=== PATIENT | male | born 1975 | race African-American/Black ===

== ENCOUNTER 2022-01-23 08:16 | Emergency (ER) | payer BC ==
--- OUTSIDE RECORDS SUMMARY | 2022-01-23 08:28 | XMS REPORT | Continuity of Care Document ---
:[address] [facility] t Address [address] [place] [address] Care Team Providers Name Role Phone Lab, Fam Pob I Attending Clinician Unavailable Tyson ANIMAL HANDLER Attending Clinician TYSON Attending Clinician Unavailable Payers Payer Name Policy Type Policy Number Effective Date Expiration Date S ource Problems This patient has no known problems. Allergies, Adverse Reactions, Alerts Allergy Allergy Status Severity Reaction(s) Onset Inactive Treating Comm ents Source Name Type Date Date Clinician NO KNOWN Drug Active [facility] Social History Social Habit Start Date Stop Date Quantity Comments Source Exposure to Yes [facility] SARS-CoV-2 (event) Medica l [place] Sex Assigned At [birth year] [facility] 00:00:00 00:00:00 [facility] Smoking Status Start Date Stop Date Source Unknown if ever smoked [facility] Medications This patient has no known medications. Procedures This patient has no known procedures. Encounters Start End Encounter Admission Attending Care Care Encounter Source Date/Time Date/Time Type Type Clinicians Facility Department ID 2021-02-03 2021-02-03 Laboratory Lab, [facility] Fam Pob I [facility] 1.2. [id number] Univers 08:49:04 09:09:04 Only Shayla Blake [employer] [place] [id number] [facility] [id number] Pasquale as Professio [phone] [facility] [address] 2021-02-03 2021-02-03 Outpatient R TYSON [facility] [id number] Univers 09:00:00 09:00:00 [facility] Results This patient has no known results.
[2022-01-23] MEDS ORDERED: TETRACAINE HCL 0.5% 4ML OPTH ONE (08:57)
[2022-01-23] MEDS ORDERED: FLUORESCEIN SODIUM 1 MG/WRAP ONE (08:57)
[2022-01-23] MEDS ORDERED: acetaZOLAMIDE 250 MG TAB ONE (09:56)
--- NOTE | 2022-01-23 10:02 | EDPHYS ---
Physician Documentation [facility] Name: Charlie Rivers Age: 46 yrs Sex: Male : 1975 Arrival Date: 01/23/2022 Time: 08:20 Bed 12 Private MD: ED Physician Laurent Kim HPI: 01/23 09:10 This 46 yrs old Black Male presents to ER via Ambulatory with complaints of Eye Pain, jmm Eye Swelling, Redness of Eye, Drainage From Eye. 09:10 Onset: The symptoms/episode began/occurred acutely, 2 day(s) ago. This is a 46-year-old jmm male with no known chronic conditions presents emerged part with complaints of acute onset left eye pain beginning approximately 2 days ago. Patient states while exiting his workplace developed acute pain secondary to the light outside. Patient states pain had subsided yesterday but this morning he awoke with more pain to the left eye along with drainage. Denies vision change. Patient states that he had occasional blurred vision to his left eye but is now resolved. Denies fever, cough, congestion.. Historical: - Allergies: 08:39 No Known Allergies; jd3 - Home Meds: 08:39 None [Active]; jd3 - PMHx: 08:39 None; jd3 - PSHx: 08:39 None; jd3 - Immunization history:: Adult Immunizations up to date, Client reports receiving the 2nd dose of the Covid vaccine, Flu vaccine is up to date. - Social history:: Smoking status: Patient reports the use of cigarette tobacco products, denies chronic smoking, but will smoke occasionally. ROS: 09:10 Constitutional: Negative for fever, chills, and weight loss. jmm 09:10 Eyes: Positive for pain. 09:10 All other systems are negative. Exam: 09:10 Constitutional: This is a well developed, well nourished patient who is awake, alert, jmm and in no acute distress. Head/Face: atraumatic. 09:10 Neck: Trachea midline, Supple Chest/axilla: Normal chest wall appearance and motion. Cardiovascular: Regular rate and rhythm. No edema appreciated Respiratory: Normal respirations, no respiratory distress appreciated Abdomen/GI: Non distended, soft Back: Normal ROM Skin: General appearance color normal MS/ Extremity: Moves all extremities, no obvious deformities appreciated, no edema noted to the lower extremities Neuro: Awake and alert Psych: Behavior is normal, Mood is normal, Patient is cooperative and pleasant 09:10 Eyes: Extraocular movements: intact throughout, Conjunctiva: injected, in the left eye, Corneas: abrasion, is not appreciated, foreign body, is not appreciated, a fluorescein strip employed to appreciate the findings, Anterior chamber: Intraocular pressure: left eye = 32mmHg. Vital Signs: 08:40 BP 158 / 86; Pulse 67; Resp 17 S; Temp 98.0(TE); Pulse Ox 99% on R/A; Weight 102.06 kg jd3 (R); Height 5 ft. 11 in. (180.34 cm) (R); Pain 8/10; 10:18 BP 137 / 97; Pulse 83; Resp 18; Temp 98.6; Pulse Ox 99% on R/A; ke1 08:40 Body Mass Index 31.38 (102.06 kg, 180.34 cm) jd3 Visual Acuity: 10:02 Left Eye Visual acuity 20/20, Normal, React To Light; Right Eye Visual acuity 20/20, ke1 Normal, React To Light; Both Eyes Visual acuity 20/20; Without Lenses; MDM: 09:12 Patient medically screened. [facility] 09:34 ED course: Asked by Timi to evaluate patient after difficulty obtaining pressures with rn tonopen. I performed pressure measurement using tonopen after tetracaine applied, 3 pressures obtained, 32/42/46. Pt reports 2 days of left eye pain without trauma or injury. Dr. rollins unavailable to help, is out of town, will initiate transfer for acute glaucoma. . 09:52 Data reviewed: vital signs, nurses notes. Counseling: I had a detailed discussion with nikolay the patient and/or guardian regarding: the historical points, exam findings, and any diagnostic results supporting the discharge/admit diagnosis, the need to transfer to another facility. ED course: I discussed the patient with Dr. overton whom accepted the patient to [facility] for further evaluation. Advised not administer timolol or diamox. . 01/23 09:37 Order name: SARS-COV-2 RT PCR (Document "Date of Onset" if Symptomatic) eb 01/23 09:20 Order name: Visual Acuity; Complete Time: 10:14 nikolay Administered Medications: 09:11 Drug: Tetracaine Drops 0.5 % 1 drops {Note: BY Yeni HDEZ} Route: Ophthalmic; Site: ke1 left eye; 09:11 Drug: Fluorescein Strip 1 strip {Note: by Yeni HDEZ} Route: Ophthalmic; Site: left ke1 eye; 10:01 Not Given (Physician Discretion): timoloL Drops 0.5 % 1 application Ophthalmic Per ke1 protocol 10:01 Not Given (Physician Discretion): Diamox Sequels (acetaZOLAMIDE) Extended Release ke1 Capsule 500 mg PO once Disposition: 11:40 Co-signature as Attending Physician, Laurent Kim MD I agree with the assessment and rn plan of care. PA/CONCRETE PAVING SUPERVISOR's history reviewed, patient interviewed, and examined. HPI: 46 year old male with left eye pain for 2 days, no trauma or injury. My personal exam of patient reveals: + left scleral injection, IOP 42/46 with tonopen, reactive I agree with assessment and care plan and confirm the diagnosis (es) above. Disposition Summary: 01/23/22 10:01 Transfer Ordered Transfer Location: [facility] jm Reason: Higher level of care jmm Condition: Stable jmm Problem: new jmm Symptoms: are unchanged jmm Accepting Physician: Dr. Loza(01/23/22 10:38) ke1 Diagnosis - Acute Glaucoma jmm Forms: - Medication Reconciliation Form jmm - SBAR form jmm Signatures: Dispatcher [employer] EDTimi Negron PA PA jmm Nieto, Roman, MD MD rn Davies, Jonathon, RN RN jd3 Ebrottie, Kouassi, RN RN ke1 Corrections: (The following items were deleted from the chart) 10:38 10:01 Dr. Dgao link ke1
--- NOTE | 2022-01-23 10:02 | ER ---
Nurse's Notes [facility] Name: Charlie Rivers Age: 46 yrs Sex: Male : 1975 Arrival Date: 01/23/2022 Time: 08:20 Bed 12 Private MD: Diagnosis: Acute Glaucoma Presentation: 01/23 08:36 Chief complaint: Patient states: "mt left eye has been giving me problems for about 2 jd3 days now. I noticed it is red and tearing. I saw that there might be puss so it might be getting infected and decided I need it checked out.". Coronavirus screen: At this time, the client does not indicate any symptoms associated with coronavirus-19. Ebola Screen: No symptoms or risks identified at this time. The patient denies any loss of vision. Initial Sepsis Screen: Does the patient meet any 2 criteria? No. Patient's initial sepsis screen is negative. Does the patient have a suspected source of infection? Yes: Skin breakdown/wound. Risk Assessment: Do you want to hurt yourself or someone else? Patient reports no desire to harm self or others. Onset of symptoms was January 21, 2022. 08:36 Method Of Arrival: Ambulatory jd3 08:36 Acuity: JOSÉ 3 jd3 Historical: - Allergies: 08:39 No Known Allergies; jd3 - Home Meds: 08:39 None [Active]; jd3 - PMHx: 08:39 None; jd3 - PSHx: 08:39 None; jd3 - Immunization history:: Adult Immunizations up to date, Client reports receiving the 2nd dose of the Covid vaccine, Flu vaccine is up to date. - Social history:: Smoking status: Patient reports the use of cigarette tobacco products, denies chronic smoking, but will smoke occasionally. Screenin:18 Abuse screen: Denies threats or abuse. Nutritional screening: No deficits noted. ke1 Tuberculosis screening: No symptoms or risk factors identified. Fall Risk No fall in past 12 months (0 pts). No secondary diagnosis (0 pts). No IV (0 pts). Ambulatory Aid- None/Bed Rest/Nurse Assist (0 pts). Gait- Normal/Bed Rest/Wheelchair (0 pts) Mental Status- Oriented to own ability (0 pts). Total Hutchins Fall Scale indicates No Risk (0-24 pts). Assessment: 08:50 Pain: Complains of pain in left eye Pain does not radiate. Pain currently is 8 out of ke1 10 on a pain scale. 08:56 EENT: Sclera/Cornea are reddened in outer aspect of conjuctiva of left eye, iris of ke1 left eye and inner aspect of conjunctiva of left eye. 08:58 General: Appears uncomfortable, Behavior is cooperative. Neuro: Level of Consciousness ke1 is awake, alert, Oriented to person, place, time, situation. Cardiovascular: Heart tones S1 S2 Capillary refill < 3 seconds Patient's skin is warm and dry. Pulses are all present. Respiratory: Airway is patent Breath sounds are clear bilaterally. GI: No deficits noted. : No deficits noted. Derm: No deficits noted. Musculoskeletal: No deficits noted. 10:18 Reassessment: REPORT CALLED AND GIVEN TO RUSSELL GOODMAN. ke1 Vital Signs: 08:40 BP 158 / 86; Pulse 67; Resp 17 S; Temp 98.0(TE); Pulse Ox 99% on R/A; Weight 102.06 kg jd3 (R); Height 5 ft. 11 in. (180.34 cm) (R); Pain 8/10; 10:18 BP 137 / 97; Pulse 83; Resp 18; Temp 98.6; Pulse Ox 99% on R/A; ke1 08:40 Body Mass Index 31.38 (102.06 kg, 180.34 cm) jd3 Visual Acuity: 10:02 Left Eye Visual acuity 20/20, Normal, React To Light; Right Eye Visual acuity 20/20, ke1 Normal, React To Light; Both Eyes Visual acuity 20/20; Without Lenses; ED Course: 08:20 Patient arrived in ED. jj6 08:39 Triage completed. jd3 08:41 Arm band placed on. jd3 08:42 Timi Jaime PA is PHCP. jmm 08:42 Laurent Kim MD is Attending Physician. jmm 08:44 Armida Lara, MAXINE is Primary Nurse. ke1 09:18 Bed in low position. Call light in reach. ke1 09:37 initiated a transfer with Juanito from the [facility]. eb 09:[address] Bell the polisher eyeglass frames citizen participation specialist for [facility] with Timi Mccoy for patient transfer consultation. 09:[address] Loza the emergency room doctor for [facility] with Timi Mccoy for patient transfer consultation. 10:00 administrative approval given by Juanito Russ / patient has been accepted to [facility] ER/ Dr. Yelena Loza has accepted the patient in transfer/ report to be called to [phone]. 10:32 Assist provider with eye exam of left eye. ke1 10:37 Patient did not have IV access during this emergency room visit. ke1 Administered Medications: 09:11 Drug: Tetracaine Drops 0.5 % 1 drops {Note: BY Yeni HDEZ} Route: Ophthalmic; Site: [facility] left eye; 09:11 Drug: Fluorescein Strip 1 strip {Note: by Yeni HDEZ} Route: Ophthalmic; Site: left [facility] eye; 10:01 Not Given (Physician Discretion): timoloL Drops 0.5 % 1 application Ophthalmic Per [facility] protocol 10:01 Not Given (Physician Discretion): Diamox Sequels (acetaZOLAMIDE) Extended Release ke1 Capsule 500 mg PO once Outcome: 10:01 ER care complete, transfer ordered by . nikolay 10:37 Transferred by ground EMS to [facility], Transfer form completed. ke1 10:37 Condition: stable 10:37 Discharge instructions given to EMS. 10:38 Patient left the ED. ke1 Signatures: Timi Jaime PA PA jmm Davies, Jonathon, RN RN jd3 Botello, Elizabeth eb Jeffries, Jennifer jj6 Armida Lara RN RN ke1 Corrections: (The following items were deleted from the chart) 09:00 08:56 EENT: Sclera/Cornea are reddened in outer aspect of conjuctiva of left eye, iris ke1 of left eye and inner aspect of conjunctiva of left eye ke1 09:12 09:11 Fluorescein Strip 1 strip Ophthalmic in left eye ke1 ke1 10:12 10:11 administrative approval given by Juanito Russ / patient has been accepted to [facility] ER/ Dr. Yelena Loza has accepted the patient in transfer/ report to be called to [phone] 10: 10:02 Right Eye Without Lenses, 20/20, React To Light, Left Eye Without Lenses, 20/, ke1 React To Light, Both Eyes Without Lenses, 20 ke1
[2022-01-23 10:43] VITALS: O2SAT 99
[2022-01-23 10:44] VITALS: BP 137/97; TEMP 98.6
== END 2022-01-23 10:38 | disposition short-term general hospital (02) ==
LOC: ER 08:16
DX: H40.9 Unspecified glaucoma (principal); F17.210 Nicotine dependence, cigarettes, uncomplicated; Z20.822 Contact with and (suspected) exposure to COVID-19
CPT/HCPCS: 99285; U0003

== ENCOUNTER 2022-10-11 00:12 | Emergency (ER) | payer BC ==
--- OUTSIDE RECORDS SUMMARY | 2022-10-11 00:15 | XMS REPORT | Continuity of Care Document ---
:1975 Author Organization [facility] t Address [address] [place] [address] Care Team Providers Name Role Phone SELENE CLEANING Attending Clinician Unavailable HEIKE LOZA Attending Clinician Unavailable Heike Loza MD Attending Clinician Lab, Adc Fam Pob I Attending Clinician Unavailable Shayla Mckenna Attending Clinician SHAYLA MEHTA Attending Clinician Unavailable Payers Payer Name Policy Type Policy Number Effective Date Expiration Date S ource PPO/EPO - BCBS [id number] 2022 00:00:00 Problems This patient has no known problems. Allergies, Adverse Reactions, Alerts Allergy Allergy Status Severity Reaction(s) Onset Inactive Treating Comm ents Source Name Type Date Date Clinician NO KNOWN Drug Active [facility]OWN Allergy Active [facility] Social History Social Habit Start Date Stop Date Quantity Comments Source Exposure to Yes [facility] SARS-CoV-2 (event) Medica l Branch Sex Assigned At [birth year] [facility] Medical 00:00:00 00:00:00 Center Smoking Status Start Date Stop Date Source Unknown if ever smoked [facility] acute hospital Medications Ordered Filled Start Stop Current Ordering Indication Dosage Frequency Signature Comments Components Source Medication Medication Date Date Medication? Clinician (SIG) Name Name prednisoLON Yes 1[drp] Q.25D Place [address] [facility] [address] [facility] acetate 3-05 drop [facility] (PRED 00:00: the left Medical FORTE) 1 % 00 eye 4 Center ophthalmic (four) suspension times daily. atropine Yes 1[drp] Q.5D Place 1 [facility] (ISOPTO) 1 3-05 drop into Luke s % 00:00: the left Medical ophthalmic 00 eye 2 Center solution (two) times daily. Vital Signs Vital Name Observation Time Observation Value Comments Source Oxygen saturation in 2022-01-23 13:49:00 100 /min [facility]xim[facility] Systolic blood 2022-01-23 13:49:00 171 mm[Hg] [facility] Diastolic blood 2022-01-23 13:49:00 98 mm[Hg] [facility] S [facility] Heart rate 2022-01-23 13:49:00 68 /min [facility] Respiratory rate 2022-01-23 13:49:00 18 /min [facility] Body temperature 2022-01-23 11:54:00 36.72 Shelbi [facility] Procedures This patient has no known procedures. Plan of Care Planned Activity Planned Date Details Comments Source Future Scheduled 2022-07-22 INFLUENZA VACCINE (#1) [facility] 00:00:00 [code = INFLUENZA Medical Ce nter VACCINE (#1)] Future Scheduled 2021-11-[address] [facility] 00:00:00 (12+) [code = Medical Center DEPRESSION SCREENING (12+)] Future Scheduled 2011 Lipid panel (procedure) [facility] 00:00:00 [code = 49522755] Medical nter Future Scheduled 1995 DTAP/TDAP/TD VACCINES [facility] 00:00:00 (1 - Tdap) [code = Medical C enter DTAP/TDAP/TD VACCINES (1 - Tdap)] Future Scheduled 1994 HEPATITIS C SCREENING [facility] 00:00:00 [code = HEPATITIS C Medical Center SCREENING] Future Scheduled [address] [facility] 00:00:00 Counseling and Medical Cente r Screening (12+) [code = Tobacco Cessation Counseling and Screening (12+)] Future Scheduled 1977-04-18 COVID-19 VACCINE (#1) [facility] 00:00:00 [code = COVID-[address] VACCINE (#1)] Future Scheduled 1976 CT Colonography (combo) [facility] 00:00:00 [code = CT Colonography [facility] (combo)] Future Scheduled 1976 Screening for malignant [facility] 00:00:00 neoplasm of colon Medical Ce nter (procedure) [code = 695739086] Future Scheduled 1976 Screening for malignant [facility] 00:00:00 neoplasm of colon Medical Ce nter (procedure) [code = 021861646] Future Scheduled 1975 Screening for malignant [facility] 00:00:00 neoplasm of colon Medical Ce nter (procedure) [code = 430717319] Future Scheduled 1976 Screening for malignant [facility] 00:00:00 neoplasm of colon Medical Ce nter (procedure) [code = 572478974] Future Scheduled 1975 Sigmoidoscopy [code = [facility] 00:00:00 Sigmoidoscopy] Medical Cente r Encounters Start End Encounter Admission Attending Care Care Encounter Source Date/Time Date/Time Type Type Clinicians Facility Department ID 2022-01-26 2022-01-26 Outpatient SELENE CLEANING [facility] [id number] 12:54:46 14:22:34 Tyesha Medicin e 2022-01-23 2022-01-23 Emergency ER [facility] Emergency [id number] [facility] 11:38:00 17:56:00 HEIKE 2022-01-23 2022-01-23 [id number] 11:38:00 17:56:00 [facility] 2021-02-03 2021-02-03 Laboratory Lab, Adc Fam Pob I [place] 1.2. [id number] [facility] 08:49:04 09:09:04 Only Tyson [employer] [id number] [facility] [place] [id number] Pasquale as Professio [phone] Ut dical nal [address] Branch Office [facility] 2021-02-03 2021-02-03 Outpatient R TYSON, [facility] [id number] Univers 09:00:00 09:00:[address] [facility] Results This patient has no known results.
[2022-10-11] MEDS ORDERED: ASPIRIN 81 MG CHEWABLE TABLET ONE (01:00)
[2022-10-11] MEDS ORDERED: MORPHINE 4 MG/ML SYR ONE (01:45)
[2022-10-11 01:49] LABS: SARS-COV-2 RT PCR NEGATIVE (NEGATIVE)
[2022-10-11 02:06] LABS: Absolute Lymphocytes (CBC) 1.4 K/uL (0.7-4.9); Lymphocytes % 19.4 % (15.3-44.8); MCV 86.2 fL (80-100); MPV 8.9 fL (7.6-11.3); RBC Red Blood Cell Count 5.68 M/uL (4.33-5.43)
[2022-10-11 02:29] LABS: Albumin 3.8 g/dL (3.4-5.0); Bilirubin Total 0.3 mg/dL (0.2-1.0); Magnesium 1.9 mg/dL (1.8-2.4); Protein, Total 7.6 g/dL (6.4-8.2)
--- NOTE | 2022-10-11 03:06 | EDPHYS ---
Physician Documentation [facility] Name: Charlie Rivers Age: 46 yrs Sex: Male : 1975 Arrival Date: 10/11/2022 Time: 00:15 Bed 5 Private MD: ED Physician Vilma Rios HPI: 10/11 03:00 This 46 yrs old Black Male presents to ER via Ambulatory with complaints of High Blood sd2 Pressure. 03:00 46 yo M presents with CC of R sided CP and hypertension. States malaise as well since sd2 starting new blood pressure medication, amlodipine, yesterday. Also states L eye started to become red, tearing and matted over the past 2 days. Endorses associated mild cough and congestion as well. Denies fever, n/v or diaphoresis. States this is first time he has been placed on BP medications. . Historical: - Allergies: 00:34 No Known Allergies; tw5 - Home Meds: 00:34 amlodipine 5 mg tab 1 tab once daily [Active]; Vitamin D Oral [Active]; tw5 - PMHx: 00:34 Hypertensive disorder; tw5 - PSHx: 00:34 None; tw5 - Immunization history:: Flu vaccine is not up to date. It has been more than one year since last vaccine. - Social history:: Smoking status: Patient reports the use of cigarette tobacco products, black and milds. ROS: 03:00 Constitutional: Negative for fever, chills, and weight loss, Eyes: Negative for injury, sd2 pain, Positive for redness, and discharge, ENT: Negative for injury, pain, and discharge, Cardiovascular: Positive for chest pain, Negative for palpitations, and edema, Respiratory: Negative for shortness of breath, cough, wheezing. Abdomen/GI: Negative for abdominal pain, nausea, vomiting, diarrhea. MS/Extremity: Negative for injury and deformity, Skin: Negative for injury, rash, and discoloration, Neuro: Negative for headache, numbness and tingling. Exam: 03:00 Constitutional: This is a well developed, well nourished patient who is awake, alert, sd2 and in no acute distress. Head/Face: Normocephalic, atraumatic. Eyes: EOMI, R eye with normal conjunctiva, L eye injected with clear discharge Chest/axilla: Normal chest wall appearance and motion. Nontender with no deformity. Cardiovascular: Regular rate and rhythm with a normal S1 and S2. No gallops, murmurs, or rubs. 2+ distal pulses. Respiratory: Lungs have equal breath sounds bilaterally, clear to auscultation and percussion. No rales, rhonchi or wheezes noted. No increased work of breathing, no retractions or nasal flaring. Abdomen/GI: Soft, non-tender, with normal bowel sounds. No guarding or rebound. No evidence of tenderness throughout. Skin: Warm, dry with normal turgor. Normal color with no rashes, no lesions, and no evidence of cellulitis. MS/ Extremity: Pulses equal, no cyanosis. Neurovascular intact. Full, normal range of motion. Ambulatory without difficulty. Psych: Awake, alert, with orientation to person, place and time. Behavior, mood, and affect are within normal limits. 03:00 ECG was reviewed by the Attending Physician. NSR, rate 70, no STEMI criteria sd2 Vital Signs: 00:32 BP 147 / 106; Pulse 70; Resp 18; Temp 99; Pulse Ox 98% ; Weight 102.06 kg; Height 6 ft. tw5 1 in. (185.42 cm); Pain 8/10; 01:35 BP 149 / 96; Pulse 64; Resp 18 S; Pulse Ox 97% on R/A; as6 02:45 BP 164 / 95; Pulse 58; Resp 18 S; Pulse Ox 100% on R/A; as6 00:32 Body Mass Index 29.68 (102.06 kg, 185.42 cm) tw5 MDM: 00:41 Patient medically screened. sd2 03:00 Differential diagnosis: Differential diagnosis includes but is not limited to: ACS, sd2 DVT/PE, pneumothorax, dissection, musculoskeletal, anxiety, anemia, electrolyte abnormality, pneumonia, CHF, COPD among others. Data reviewed: vital signs, nurses notes, lab test result(s), EKG, radiologic studies. Counseling: I had a detailed discussion with the patient and/or guardian regarding: the historical points, exam findings, and any diagnostic results supporting the discharge/admit diagnosis, the presence of at least one elevated blood pressure reading (>120/80) during this emergency department visit, lab results, radiology results, the need for outpatient follow up, to return to the emergency department if symptoms worsen or persist or if there are any questions or concerns that arise at home. ED course: Labs and imaging reviewed. Labs grossly WNCL. Trop neg. EKG with no ischemic changes. Viral testing negative. Will plan to treat eye for conjunctivitis. Possible underlying viral etiology in associated with possible side effects to amlodipine. Will stop amlodipine and switch to HCTZ and patient to follow up with PCP for further evaluation and recheck of BP and symptoms. CP resolved at time of my repeat evaluation. pt comfortable with discharge plan and verbalizes understanding of strict return precautions. . 10/11 00:49 Order name: CBC with Diff; Complete Time: 02:24 sd2 10/11 00:49 Order name: CMP; Complete Time: 02:32 sd2 10/11 00:49 Order name: Troponin High Sensitivity; Complete Time: 02:32 sd2 10/11 00:49 Order name: BNP; Complete Time: 02:32 sd2 10/11 00:49 Order name: Magnesium; Complete Time: 02:32 sd2 10/11 00:49 Order name: COVID-19/FLU A+B; Complete Time: 02:24 sd2 10/11 00:49 Order name: EKG - Nurse/Tech; Complete Time: 00:49 sd2 10/11 00:49 Order name: XRAY Chest (1 view) sd2 Administered Medications: 01:09 Drug: Aspirin Chewable Tablet 324 mg Route: PO; jb4 03:20 Follow up: Response: No adverse reaction jb4 01:47 Drug: morphine 4 mg Route: IVP; Infused Over: 4 mins; Site: right forearm; as6 03:19 Follow up: Response: No adverse reaction; Marked relief of symptoms jb4 Disposition Summary: 10/11/22 03:05 Discharge Ordered Location: Home sd2 Problem: new sd2 Symptoms: have improved sd2 Condition: Stable sd2 Diagnosis - Essential (primary) hypertension sd2 - Possible medication side effect sd2 - Unspecified conjunctivitis sd2 Followup: sd2 - With: Private Physician - When: 2 - 3 days - Reason: Recheck today's complaints, Continuance of care, Re-evaluation by your physician Discharge Instructions: - Discharge Summary Sheet sd2 - Bacterial Conjunctivitis, Adult sd2 - Hypertension, Adult sd2 - Managing Your Hypertension sd2 Forms: - Medication Reconciliation Form sd2 - Thank You Letter sd2 - Antibiotic Education sd2 - Prescription Opioid Use sd2 - Work release form jb4 Prescriptions: - Polytrim 10,000 unit- 1 mg/mL Ophthalmic drops - instill 1 drop by OPHTHALMIC route every 6 hours for 7 days; 1 vial; Refills: sd2 0, Product Selection Permitted - Hydrochlorothiazide 12.5 mg Oral Capsule - take 1 tablet by ORAL route once daily; 14 tablet; Refills: 0, Product sd2 Selection Permitted Signatures: Dispatcher [employer] Dakota Moore RN RN jb4 Asia Hathaway tw5 Fabian Stephen RN RN as6 Vilma Rios MD MD sd2
--- NOTE | 2022-10-11 03:06 | ER ---
Nurse's Notes [facility] Name: Charlie Rivers Age: 46 yrs Sex: Male : 1975 Arrival Date: 10/11/2022 Time: 00:15 Bed 5 Private MD: Diagnosis: Essential (primary) hypertension;Possible medication side effect;Unspecified conjunctivitis Presentation: 10/11 00:32 Chief complaint: Patient states: "I dont know if it is the new medication I am taking, tw5 but I am really low energy and while I was waiting I started to get some chest pain on the right side of my chest. My eye is also red and leaking water out of it.". Coronavirus screen: Vaccine status: Patient reports receiving the 2nd dose of the covid vaccine. Moderna. Ebola Screen: Patient negative for fever greater than or equal to 101.5 degrees Fahrenheit, and additional compatible Ebola Virus Disease symptoms Patient denies exposure to infectious person. Patient denies travel to an Ebola-affected area in the 21 days before illness onset. Initial Sepsis Screen: Does the patient meet any 2 criteria? No. Patient's initial sepsis screen is negative. Does the patient have a suspected source of infection? No. Patient's initial sepsis screen is negative. Risk Assessment: Do you want to hurt yourself or someone else? Patient reports no desire to harm self or others. Onset of symptoms was October 10, 2022 at 22:30. 00:32 Method Of Arrival: Ambulatory tw5 00:32 Acuity: JOSÉ 2 tw5 Triage Assessment: 00:34 General: Appears uncomfortable, Behavior is drowsy. Pain: Complains of pain in anterior tw5 aspect of right upper chest Pain currently is 8 out of 10 on a pain scale. Historical: - Allergies: 00:34 No Known Allergies; tw5 - Home Meds: 00:34 amlodipine 5 mg tab 1 tab once daily [Active]; Vitamin D Oral [Active]; tw5 - PMHx: 00:34 Hypertensive disorder; tw5 - PSHx: 00:34 None; tw5 - Immunization history:: Flu vaccine is not up to date. It has been more than one year since last vaccine. - Social history:: Smoking status: Patient reports the use of cigarette tobacco products, black and milds. Screenin:36 Abuse screen: Denies threats or abuse. Denies injuries from another. Nutritional tw5 screening: No deficits noted. Tuberculosis screening: No symptoms or risk factors identified. Fall Risk None identified. Assessment: 00:45 General: Appears in no apparent distress. uncomfortable, Behavior is calm, cooperative, jb4 appropriate for age. Pain: Complains of pain in left eye and chest and head Pain does not radiate. Pain currently is 8 out of 10 on a pain scale. Quality of pain is described as throbbing. Neuro: Level of Consciousness is awake, alert, obeys commands, Oriented to person, place, time, situation. Cardiovascular: Patient's skin is warm and dry. Respiratory: Airway is patent Respiratory effort is even, unlabored, Respiratory pattern is regular, symmetrical. GI: No signs and/or symptoms were reported involving the gastrointestinal system. : No signs and/or symptoms were reported regarding the genitourinary system. EENT: Sclera/Cornea are reddened in outer aspect of conjuctiva of left eye and inner aspect of conjunctiva of left eye. Derm: Skin is intact, Skin is dry, Skin is normal, Skin temperature is warm. Musculoskeletal: Circulation, motion, and sensation intact. Range of motion: intact in all extremities. 01:35 Reassessment: Patient appears in no apparent distress at this time. Patient and/or jb4 family updated on plan of care and expected duration. Pain level reassessed. Patient is alert, oriented x 3, equal unlabored respirations, skin warm/dry/pink. 02:45 Reassessment: Patient states feeling better. Pain: Pain currently is 5 out of 10 on a as6 pain scale. Vital Signs: 00:32 BP 147 / 106; Pulse 70; Resp 18; Temp 99; Pulse Ox 98% ; Weight 102.06 kg; Height 6 ft. tw5 1 in. (185.42 cm); Pain 8/10; 01:35 BP 149 / 96; Pulse 64; Resp 18 S; Pulse Ox 97% on R/A; as6 02:45 BP 164 / 95; Pulse 58; Resp 18 S; Pulse Ox 100% on R/A; as6 00:32 Body Mass Index 29.68 (102.06 kg, 185.42 cm) tw5 ED Course: 00:15 Patient arrived in ED. as 00:18 Vilma Rios MD is Attending Physician. sd2 00:34 Triage completed. tw5 00:34 Arm band placed on left wrist. tw5 00:36 Fabian Stephen, RN is Primary Nurse. as6 00:45 Patient has correct armband on for positive identification. Placed in gown. Bed in low mm9 position. Call light in reach. Side rails up X 1. security monitor on. Pulse ox on. NIBP on. 00:46 EKG done, by ED staff, reviewed by Vilma Rios MD. mm9 01:00 Missed attempt(s): 18 gauge in right antecubital area. NURSE NOTIFIED. mm9 01:06 Warm blanket given. mm9 01:06 COVID-19/FLU A+B Sent. mm9 01:06 COVID swab sent to lab. mm9 01:11 XRAY Chest (1 view) In Process Unspecified. EDMS 03:20 No provider procedures requiring assistance completed. intact, bleeding controlled, No jb4 redness/swelling at site. Pressure dressing applied. Administered Medications: 01:09 Drug: Aspirin Chewable Tablet 324 mg Route: PO; jb4 03:20 Follow up: Response: No adverse reaction jb4 01:47 Drug: morphine 4 mg Route: IVP; Infused Over: 4 mins; Site: right forearm; as6 03:19 Follow up: Response: No adverse reaction; Marked relief of symptoms jb4 Medication: 01:36 VIS not applicable for this client. as6 Outcome: 03:05 Discharge ordered by . sd2 03:20 Discharged to home ambulatory. jb4 03:20 Condition: stable 03:20 Discharge instructions given to patient, Instructed on discharge instructions, follow up and referral plans. medication usage, Demonstrated understanding of instructions, follow-up care, medications, Prescriptions given X 2. 03:20 Patient left the ED. jb4 Signatures: Dispatcher [employer] EDNM Sharda Sandoval James RN RN jb4 Asia Hathaway tw5 Fabian Stephen, RN RN as6 Vilma Rios MD MD sd2 Sary Sandoval mm9
[2022-10-11 03:24] VITALS: TEMP 99
[2022-10-11 03:27] VITALS: BP 164/95; O2SAT 100
--- NOTE | 2022-10-11 14:08 | RAD REPORT ---
EXAM DESCRIPTION: RAD - Chest Single View - 10/11/2022 1:09 am CLINICAL HISTORY 46 years Male CHEST PAIN COMPARISON: None TECHNIQUE: AP view of the chest was obtained. FINDINGS: Cardiac size is within normal limits. Central vessels are not increased. No infiltrates or effusions seen. No consolidation. No pneumothorax. IMPRESSION: No active disease. Electronically signed by: Gege Escobedo MD 10/11/2022 1:20 AM LOCAL OPERATOR Due to temporary technical issues with the PACS/Fluency reporting system, reports are being signed by the in house radiologists without review as a courtesy to insure prompt reporting. The interpreting radiologist is fully responsible for the content of the report.
--- NOTE | 2022-10-11 15:28 | EKG ---
Test Date: 2022-10-11 Test Time: 00:42:17 Scrip Clerk: LUPILLO MEASUREMENT RESULTS: Intervals: Rate: 70 OR: 176 QRSD: 90 QT: 374 QTc: 403 Buckley: P: 56 OR: 176 QRS: 65 T: 19 INTERPRETIVE STATEMENTS: Normal sinus rhythm Nonspecific T wave abnormality Abnormal ECG No previous ECG available for comparison Electronically Signed On 10-11-22 15:27:23 BLOW DOWN HELPER by Kar Barillas
== END 2022-10-11 03:20 | disposition home or self-care (01) ==
LOC: ER 00:12
DX: I10 Essential (primary) hypertension (principal); H10.9 Unspecified conjunctivitis; F17.290 Nicotine dependence, other tobacco product, uncomplicated; Z20.822 Contact with and (suspected) exposure to COVID-19
CPT/HCPCS: 93005; 85025; 36415; 83735; 84484; 80053; 83880; 0240U; 71045; 96374; 99284

== ENCOUNTER 2024-09-25 15:36 | Emergency (ER) | payer BC ==
--- NOTE | 2024-09-25 17:15 | EDPHYS ---
Physician Documentation [facility] Name: Charlie Rivers Age: 48 yrs Sex: Male : 1975 Arrival Date: 09/25/2024 Time: 15:36 Bed [id number] Private MD: ED Physician Boubacar Adams HPI: 09/25 17:09 This 48 yrs old Black Male presents to ER via Ambulatory with complaints of Fall sp3 Injury, Hip Pain. 17:09 48-year-old male with history of hypertension presents with mechanical fall while sp3 coming down steps and slipping. Landed on his right hand and right hip. He denies head injury, headache, neck pain, back pain, other extremity injury, medical prodrome prior to the event, or any other signs or symptoms on ROS at this time.. Historical: - Allergies: 16:16 No Known Allergies; tm6 - PMHx: 16:16 Hypertensive disorder; tm6 - PSHx: 16:16 None; tm6 - Immunization history:: Client reports receiving the 2nd dose of the Covid vaccine. - Infectious Disease History:: Denies. - Social history:: Smoking status: Patient reports the use of cigarette tobacco products, denies chronic smoking, but will smoke occasionally, Patient uses alcohol, occasionally. ROS: 17:09 Constitutional: Negative for fever, chills, and weight loss, Eyes: Negative for injury, sp3 pain, redness, and discharge, ENT: Negative for injury, pain, and discharge, Neck: Negative for injury, pain, and swelling, Cardiovascular: Negative for chest pain, palpitations, and edema, Respiratory: Negative for shortness of breath, cough, wheezing, and pleuritic chest pain, Abdomen/GI: Negative for abdominal pain, nausea, vomiting, diarrhea, and constipation, Back: Negative for injury and pain, Skin: Negative for injury, rash, and discoloration, Neuro: Negative for headache, weakness, numbness, tingling, and seizure, Psych: Negative for depression, anxiety, suicide ideation, homicidal ideation, and hallucinations, Allergy/Immunology: Negative for hives, rash, and allergies, Endocrine: Negative for neck swelling, polydipsia, polyuria, polyphagia, and marked weight changes, 17:09 All other systems are negative, Exam: 17:10 Constitutional: This is a well developed, well nourished patient who is awake, alert, sp3 and in no acute distress. Head/Face: Normocephalic, atraumatic. Eyes: Pupils equal round and reactive to light, extra-ocular motions intact. Lids and lashes normal. Conjunctiva and sclera are non-icteric and not injected. Cornea within normal limits. Periorbital areas with no swelling, redness, or edema. Neck: Trachea midline, no thyromegaly or masses palpated, and no cervical lymphadenopathy. Supple, full range of motion without nuchal rigidity, or vertebral point tenderness. No Meningismus. Chest/axilla: Normal chest wall appearance and motion. Nontender with no deformity. No lesions are appreciated. Cardiovascular: Regular rate and rhythm with a normal S1 and S2. No gallops, murmurs, or rubs. Normal PMI, no JVD. No pulse deficits. Respiratory: Lungs have equal breath sounds bilaterally, clear to auscultation and percussion. No rales, rhonchi or wheezes noted. No increased work of breathing, no retractions or nasal flaring. Abdomen/GI: Soft, non-tender, with normal bowel sounds. No distension or tympany. No guarding or rebound. No evidence of tenderness throughout. Back: No spinal tenderness. No costovertebral tenderness. Full range of motion. Skin: Warm, dry with normal turgor. Normal color with no rashes, no lesions, and no evidence of cellulitis. Neuro: Awake and alert, GCS 15, oriented to person, place, time, and situation. Cranial nerves II-XII grossly intact. Motor strength 5/5 in all extremities. Sensory grossly intact. Cerebellar exam normal. Normal gait. Psych: Awake, alert, with orientation to person, place and time. Behavior, mood, and affect are within normal limits. 17:10 Musculoskeletal/extremity: Right hand swollen and painful middle metacarpal. Right hip painful laterally but no leg shortening, lateral rotation or other abnormality. Neurovascular exam is normal all extremity distal points.. Vital Signs: 16:14 Pulse 86; Resp 18; Temp 98.4(O); Pulse Ox 99% on R/A; Weight 106.59 kg; Height 6 ft. 0 tm6 in. ; Pain 10/10; 16:14 BP 168 / 116; MAP 131 mmHg; tm6 18:01 BP 145 / 84; Pulse 70; Resp 17; Pulse Ox 99% on R/A; rs5 16:14 Body Mass Index 31.87 (106.59 kg, 182.88 cm) tm6 16:14 Pain Scale: Adult tm6 MDM: 16:18 Medical Screening Exam initiated sp3 17:11 Data reviewed: vital signs, nurses notes, radiologic studies. ED course: Mechanical sp3 fall with right hand and right hip injury. X-ray of the right hip is negative. X-ray of the right hand demonstrates 4th metacarpal fracture. Minimal displacement. Will place in a splint and discharged to orthopedic follow-up with p.o. pain medication.. 09/25 16:19 Order name: Hip Right 2 View XRAY; Complete Time: 17:37 sp3 09/25 16:19 Order name: Hand Right 3 View XRAY; Complete Time: 17:37 sp3 09/25 16:19 Order name: Recheck Vital Signs; Complete Time: 18:13 sp3 09/25 16:19 Order name: NPO; Complete Time: 18:13 sp3 09/25 17:07 Order name: Splint: Right hand volar; Complete Time: 18:13 sp3 Administered Medications: 17:29 Drug: HYDROcodone-acetaminophen PO 5 mg-325 mg 2 tabs PO once Route: PO; rs5 18:07 Follow up: Response: No adverse reaction; Pain is decreased rs5 Disposition Summary: 09/25/24 17:14 Discharge Ordered Notes: Location: Home sp3 Condition: Stable sp3 Diagnosis - Right fourth metacarpal fracture, right hip contusion, mechanical fall sp3 Followup: sp3 - With: Kane Urban MD - When: Upon discharge from the Emergency Department - Reason: Continuance of care Discharge Instructions: - Discharge Summary Sheet sp3 - Metacarpal Fracture sp3 Forms: - Medication Reconciliation Form sp3 - Antibiotic Education sp3 - Prescription Opioid Use sp3 - Patient Portal Instructions sp3 - Leadership Thank You Letter sp3 Prescriptions: - Tramadol 50 mg Oral Tablet - take 1 tablet ORAL route every 8 hours as needed; 12 tablet; Refills: 0, sp3 Product Selection Permitted Signatures: Dispatcher [employer] EDMS Boubacar Adams MD MD sp3 Germain Luis RN RN rs5 Sheila, Tawney, RN RN tm6 Corrections: (The following items were deleted from the chart) 16:19 16:19 Hand Right 3 View+[email or web address] ordered. EDMS EDMS 17:14 17:11 ED course: Mechanical fall with right hand and right hip injury. X-ray of the sp3 right hip is negative. X-ray of the right hand demonstrates middle metacarpal fracture. Minimal displacement. Will place in a splint and discharged to orthopedic follow-up with p.o. pain medication.. sp3
--- NOTE | 2024-09-25 17:15 | ER ---
Nurse's Notes [facility] Name: Charlie Rivers Age: 48 yrs Sex: Male : 1975 Arrival Date: 09/25/2024 Time: 15:36 Bed IW10 Private MD: Diagnosis: Right fourth metacarpal fracture, right hip contusion, mechanical fall Presentation: 09/25 16:14 Chief complaint: Patient states: last night I slipped and fell down some stairs. Right tm6 hip and right hand has been hurting ever since. Right hand is swollen. Coronavirus screen: Vaccine status: Patient reports receiving the 2nd dose of the covid vaccine. Ebola Screen: Patient negative for fever greater than or equal to 101.5 degrees Fahrenheit, and additional compatible Ebola Virus Disease symptoms Patient denies exposure to infectious person. Patient denies travel to an Ebola-affected area in the 21 days before illness onset. No symptoms or risks identified at this time. Initial Sepsis Screen: Does the patient meet any 2 criteria? No. Patient's initial sepsis screen is negative. Does the patient have a suspected source of infection? No. Patient's initial sepsis screen is negative. Risk Assessment: Do you want to hurt yourself or someone else? Patient reports no desire to harm self or others. Onset of symptoms was September 24, 2024. 16:14 Method Of Arrival: Ambulatory tm6 16:14 Acuity: JOSÉ 4 tm6 Triage Assessment: 16:16 General: Appears in no apparent distress. uncomfortable, Behavior is calm, cooperative. tm6 Pain: Complains of pain in right hip and right hand Pain currently is 10 out of 10 on a pain scale. Pain began 1 day ago. EENT: No signs and/or symptoms were reported regarding the EENT system. Neuro: Level of Consciousness is awake, alert, obeys commands, Oriented to person, place, time, situation. Cardiovascular: Patient's skin is warm and dry. Respiratory: Airway is patent Respiratory effort is even, unlabored, Respiratory pattern is regular, symmetrical. GI: No signs and/or symptoms were reported involving the gastrointestinal system. Abdomen is flat, non-distended. : No signs and/or symptoms were reported regarding the genitourinary system. Derm: No signs and/or symptoms reported regarding the dermatologic system. Musculoskeletal: Reports pain in right hip and right hand since last night after fall. Pain is 10 out of 10 on a pain scale. Historical: - Allergies: 16:16 No Known Allergies; tm6 - PMHx: 16:16 Hypertensive disorder; tm6 - PSHx: 16:16 None; tm6 - Immunization history:: Client reports receiving the 2nd dose of the Covid vaccine. - Infectious Disease History:: Denies. - Social history:: Smoking status: Patient reports the use of cigarette tobacco products, denies chronic smoking, but will smoke occasionally, Patient uses alcohol, occasionally. Screenin:20 [facility] ED Fall Risk Assessment (Adult) History of falling in the last 3 months, rs5 including since admission Yes- single mechanical fall (1 pt) Confusion or Disorientation No (0 pts) Intoxicated or Sedated No (0 pts) Impaired Gait Yes (1 pt) Mobility Assist Device Used No (0 pt) Altered Elimination No (0 pt) Score/Fall Risk Level 0 - 2 = Low Risk Oriented to surroundings, Maintained a safe environment. Abuse screen: Denies threats or abuse. Nutritional screening: No deficits noted. Tuberculosis screening: No symptoms or risk factors identified. Assessment: 16:20 General: Appears in no apparent distress. uncomfortable, Behavior is calm, cooperative. rs5 Pain: Complains of pain in right hand and right hip Pain currently is 8 out of 10 on a pain scale. Quality of pain is described as aching, Is continuous. Neuro: Level of Consciousness is awake, alert, obeys commands, Oriented to person, place, time, situation. Cardiovascular: Patient's skin is warm and dry. Respiratory: Airway is patent Respiratory effort is even, unlabored, Respiratory pattern is regular, symmetrical. GI: Abdomen is round non-distended, Abd is soft and non tender X 4 quads. : No signs and/or symptoms were reported regarding the genitourinary system. EENT: No signs and/or symptoms were reported regarding the EENT system. Derm: Skin is intact, Skin is pink, warm \T\ dry. Musculoskeletal: Range of motion: limited in right arm and right leg. 17:25 Reassessment: Patient and/or family updated on plan of care and expected duration. Pain rs5 level reassessed. Patient is alert, oriented x 3, equal unlabored respirations, skin warm/dry/pink. 18:07 Reassessment: Patient and/or family updated on plan of care and expected duration. Pain rs5 level reassessed. Patient is alert, oriented x 3, equal unlabored respirations, skin warm/dry/pink. Vital Signs: 16:14 Pulse 86; Resp 18; Temp 98.4(O); Pulse Ox 99% on R/A; Weight 106.59 kg; Height 6 ft. 0 tm6 in. ; Pain 10/10; 16:14 BP 168 / 116; MAP 131 mmHg; tm6 18:01 BP 145 / 84; Pulse 70; Resp 17; Pulse Ox 99% on R/A; rs5 16:14 Body Mass Index 31.87 (106.59 kg, 182.88 cm) tm6 16:14 Pain Scale: Adult tm6 ED Course: 15:38 Patient arrived in ED. mr 15:49 Boubacar Aadms MD is Attending Physician. sp3 16:16 Triage completed. tm6 16:16 Arm band placed on right wrist. tm6 16:20 Patient has correct armband on for positive identification. Placed in gown. Bed in low rs5 position. Call light in reach. Side rails up X2. 16:20 No provider procedures requiring assistance completed. rs5 17:06 Germain Luis, MAXINE is Primary Nurse. rs5 17:14 Kane Urban MD is Referral Physician. sp3 17:28 Hip Right 2 View XRAY In Process Unspecified. EDMS 17:28 Hand Right 3 View XRAY In Process Unspecified. EDMS 18:08 Patient did not have IV access during this emergency room visit. rs5 Administered Medications: 17:29 Drug: HYDROcodone-acetaminophen PO 5 mg-325 mg 2 tabs PO once Route: PO; rs5 18:07 Follow up: Response: No adverse reaction; Pain is decreased rs5 Medication: 18:00 VIS not applicable for this client. rs5 Outcome: 17:14 Discharge ordered by . sp3 18:08 Discharged to home ambulatory, with family, rs5 18:08 Condition: stable 18:08 Discharge instructions given to patient, family, Instructed on discharge instructions, follow up and referral plans. medication usage, Demonstrated understanding of instructions, follow-up care, medications, Prescriptions given X 1, 18:10 Patient left the ED. rs5 Signatures: Dispatcher [employer] GUERO Crawford Millie, Reg Reg mr AdamsBoubacar MD MD sp3 Germain Luis RN RN rs5 Tim Sosa RN RN tm6 Corrections: (The following items were deleted from the chart) 16:18 16:14 Chief complaint: Patient states: last night I slipped and fell down some stairs. tm6 Right hip and right hand has been hurting ever since tm6
[2024-09-25] MEDS ORDERED: HYDROCODONE/APAP 5/325 MG TAB ONE (17:28)
--- NOTE | 2024-09-25 17:36 | RAD REPORT ---
EXAM: XR RIGHT HAND HISTORY: Pain. trauma COMPARISON: None TECHNIQUE: Multiple projections of the right hand submitted. FINDINGS: Oblique minimally displaced fracture proximal shaft of the fourth metacarpal. Mild angulati on is noted..
--- NOTE | 2024-09-25 17:36 | RAD REPORT ---
EXAMINATION: XR RIGHT HIP CLINICAL INDICATION: . trauma RIGHT TECHNIQUE: Multiple views of the right hip were obtained. COMPARISON: No prior exam. FINDINGS: Moderate osteoarthritis affects the right hip. No acute fracture, dislocation or AVN findin gs. No radiographic evidence of AVN. IMPRESSION: Moderate osteoarthritis.
[2024-09-25 18:16] VITALS: BP 168/116; TEMP 98.4; O2SAT 99
== END 2024-09-25 18:10 | disposition home or self-care (01) ==
LOC: ER 15:36
DX: S62.324A Displaced fracture of shaft of fourth metacarpal bone, right hand, initial encounter for closed fracture (principal); S70.01XA Contusion of right hip, initial encounter; W10.8XXA Fall (on) (from) other stairs and steps, initial encounter; F17.210 Nicotine dependence, cigarettes, uncomplicated